=== PATIENT | female | born 1960 | race Caucasian/White ===

== ENCOUNTER → 2018-06-16 10:17 | Outpatient (CLI) | payer OTHER, SELFPAY ==
--- NOTE | 2018-06-16 10:27 | BI_ITS ---
MAMMOGRAPHY - BILATERAL SCREENING REASON FOR EXAM: Female, 57 years old. Routine annual screening examination. PERTINENT HISTORY: Aunt with breast cancer. TECHNIQUE: Digital bilateral breast beck (3D mammographic acquisition) in the CC and MLO projections. 2-D mediolateral oblique (MLO) and craniocaudad (CC) views of both breasts were obtained. An exaggerated craniocaudad view of the left breast was obtained as well. CAD: Full Field Digital Mammography with Computer Added Detection was performed. COMPARISON: Comparison is made with prior study dated October 13, 2009. FINDINGS: Breast Composition: There are scattered areas of fibroglandular density. There are no dominant masses or suspicious calcifications. No other significant abnormalities are identified. There has been no significant change since the prior study. BI/SCREENING MAMM (CAD), BILAT IMPRESSION: Stable bilateral screening mammogram. Yearly follow-up mammogram recommended. (A) ASSESSMENT CATEGORY: BIRADS Category 1: Negative. A letter regarding these results will be sent to the patient by the facility within 30 days. Approximately 10% of breast cancers are not detected by mammography. A normal mammogram should not delay biopsy of a clinically suspicious abnormality. [id number] Electronically Signed: Hector Hannon MD at 10:17 EDT Tel [phone], Service support ,
== END ==
DX: Z12.31 Encounter for screening mammogram for malignant neoplasm of breast (principal)
CPT/HCPCS: 77063; 77067

== ENCOUNTER 2018-06-26 09:18 | Emergency (ER) | payer SELFPAY ==
[2018-06-26 09:20] VITALS: BP 139/81; PULSE 71; RESP 18; TEMP 36.6; O2SAT 99; BMI 28.3
--- NOTE | 2018-06-26 09:33 | US_ITS ---
STUDY: ABDOMINAL ULTRASOUND - RIGHT UPPER QUADRANT REASON FOR VISIT: Female, 57 years old. Pain TECHNIQUE: Ultrasound evaluation of the right upper quadrant was performed with real-time and static kuhn-scale imaging. TECHNICAL QUALITY: Adequate. COMPARISON: August 21, 2014 report only FINDINGS: Liver: The liver measures 13.1 cm. There is increased echogenicity consistent with fatty infiltration. The bile ducts are within normal limits. There is hepatic color flow. The direction of portal flow is hepatopetal. There is no demonstrated mass lesion. Gallbladder: Normal distended gallbladder. The gallbladder wall measures 2.2 mm. There is a positive sonographic Giron's sign. There is no pericholecystic fluid. There are no gallstones. Common Bile Duct (C.B.D.): The common bile duct measures 3.1 mm. Pancreas: Normal size of the head, body and tail of the pancreas. There is normal echogenicity of the pancreas. There is no demonstrated pancreatic mass or cyst. Right Kidney: Normal size of the right kidney. The right kidney measures 9.7 cm. Normal renal cortex. The right cortex measures 1.1 cm. There is no demonstrated renal mass or cyst. There is no right hydronephrosis. US/Gallbladder IMPRESSION: There is again a positive sonographic Giron's sign. There is mild fatty infiltration of the liver. Electronically Signed: Alma Reed MD at 11:17 EDT , Service support ,
[2018-06-26 09:53] LABS: Absolute Lymphocyte Count 1.62 X10^3/ul (0.83-4.51); Absolute Neutrophil Count 2.1 X10^3/uL (2.0-7.7); Basophil# 0.05 X10^3/uL; Basophil% 1.1 % (0-1); Eosinophil# 0.12 X10^3/uL; Eosinophils% 2.7 % (0-5); Hematocrit 42.2 % (37-47); Hemoglobin 14.3 g/dl (12.0-15.0); Lymphocyte # 1.62 X10^3/ul (4.0); Lymphocyte % 36.6 % (19-41); Mean Corp Hgb Conc 33.9 g/gl (32-36); Mean Corpuscular Hgb 34.4 pg (27.0-32.0); Mean Corpuscular Volume 101.4 fL (81-99); Monocyte% 11.3 % (0-10); Neutrophil # 2.13 X10^3/uL (2.7-7.7); Neutrophil % 48.1 % (47-70); POSITIVE COUNT NO; POSITIVE DIFFERENTIAL NO; POSITIVE MORPHOLOGY NO; Platelet Count 242 K/mm3 (150-450); RBC Distribution Width SD 48.1 fl (35.1-43.9); Red Blood Count 4.16 M/mm3 (4.2-5.4); White Blood Count 4.4 K/mm3 (4.4-11.0)
[2018-06-26 10:04] LABS: ALB/GLOB Ratio 0.9 RATIO (0.9-2.4); AST(SGOT) 21 U/L (15-37); Alanine Aminotransfer ALT/SGPT 29 U/L (13-56); Albumin, Serum 3.7 g/dL (3.2-5.0); Alkaline Phosphatase 106 U/L (45-117); Anion Gap 6 (5-15); BUN 8 mg/dL (7-18); BUN/Creat Ratio 10.9 RATIO (10-20); Calcium,Total 8.9 mg/dL (8.5-10.1); Chloride 107 mmol/L (98-107); Creatinine, Serum 0.74 mg/dL (0.55-1.02); EST Glomerular Filtration Rate 87 mL/min (>60); Est Glom Filt Rate - Afr Amer 105 mL/min (>60); Estimated Creatinine Clearance 74.18 ml/min; Globulin 3.9 g/dL (2.2-4.2); Glucose 93 mg/dL (74-106); Lipase 130 U/L (73-393); Protein, Total 7.6 g/dL (6.4-8.2); Sodium Level 139 mmol/L (136-145)
[2018-06-26] MEDS: Ondansetron 4 MG/2 ML Vial IV (10:05)
[2018-06-26] MEDS: 0.9% Normal Saline 1,000 ML 1000 ML IV (10:05)
[2018-06-26] MEDS: Morphine 4 MG/ML Syringe IV (10:05)
[2018-06-26 10:12] VITALS: BP 115/82; PULSE 71; RESP 19; O2SAT 97
--- NOTE | 2018-06-26 11:33 | ED.DCSUM_ITS ---
- ER Visit Summary Date of Service: 06/26/18 Chief Complaint: Abdominal pain History of Present Illness: The patient is a 57 F with right upper quadrant abdominal pain. Symptoms have been going on for the last 4-5 days. It does not radiate. Worse after eating mayonnaise. Associated with nausea and vomiting. Patient has no history of gallbladder disease or liver disease. No urinary symptoms. No change in bowel movements. 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 No fever or rash. Physical Examination: Afebrile and vital signs unremarkable. Patient appears uncomfortable but not in distress. Heart regular. Lungs clear. Abdomen is tender in the right upper quadrant. No guarding or rebound. No distention. Skin appears normal. Test Results: CBC, CMP, lipase unremarkable. Ultrasound shows a positive sonographic Giron sign but is otherwise unremarkable. There is evidence of fatty liver. Emergency Department Course and Treatment: Patient received fluids, morphine, and Zofran while awaiting results. On reevaluation, she is resting comfortably. I do believe that she has some biliary colic or some hepatobiliary process going on. I do believe at this time she is appropriate for outpatient follow-up. She is not septic. She does not have intractable symptoms. There is nothing obvious on the workup here. There is nothing to suggest cardiac, respiratory, vascular, , or RULING MACHINE SET UP OPERATOR pathology. No further emergent workup was indicated. Patient will be discharged with a course of Motrin and Zofran. Follow-up with primary care. Return for new or worsening symptoms or if unable to follow-up. Treatment Plan: As above Disposition: Discharged Impression: 1. Right upper quadrant abdominal pain This note was generated with [employer] dictation software. It may contain incorrect words, spelling, and punctuation that were not noted in review of the chart prior to signing ED Disposition - Plan for ED Patient: Chief Complaint: Abd Pain Referrals: Candi Callahan,Kesha Downing [Primary Care Provider] -
--- NOTE | 2018-06-26 11:33 | ED.DEP ---
ED Disposition - Plan for ED Patient: Chief Complaint: Abd Pain Instructions: Abdominal Pain Prescriptions: Ondansetron [Zofran Odt] 4 mg PO Q8H PRN PRN #10 tab PRN Reason: Nausea Ibuprofen [Motrin] 800 mg PO TID PRN PRN #20 tab PRN Reason: Pain Referrals: Candi Callahan,Kesha Downing [Primary Care Provider] -
[2018-06-26 12:58] VITALS: BP 103/70; PULSE 70; RESP 29; O2SAT 95
== END 2018-06-26 13:00 | disposition home or self-care (01) ==
PROVIDERS: Emergency Provider Emergency Medicine
DX: R10.11 Right upper quadrant pain (principal); R11.2 Nausea with vomiting, unspecified; E03.9 Hypothyroidism, unspecified; M19.90 Unspecified osteoarthritis, unspecified site; Z72.0 Tobacco use; Z79.899 Other long term (current) drug therapy
CPT/HCPCS: 76705; 80053; 83690; 85025; 96361; 96374; 96375; 99283; J7030; A4216; J2405

== ENCOUNTER 2018-07-04 13:55 | Outpatient (RCR) | payer SELFPAY ==
--- NOTE | 2018-07-04 14:53 | HP.PTEVAL_ITS ---
Patient's Visit Information DEB SANDOVAL is a 57 year old F referred to Physical Therapy by Gene Martinez with a diagnosis of BPPV. Date of Evaluation: 07/04/18 Physical Therapist: Antonio Whiteside DPT, [place] - Visit Plan Frequency: 1-2x /Week Duration: 2-4 Weeks Plan: Treated with Semont, Aileen and taught BD today. 1-2x/week as needed for 1 -4 weeks for positional treatments and progressions. - Subjective Subjective: Had blood and urine tests without any thing noted. Feels spinning lightheaded and nauseous for a week or so. Insidious onset. Lying down makes her spin. Feels tight and stiff. 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 Sleep is not great becasue hard to lie comfortably. Basic aDLS are OK and is careful with walking but not dangerous. - Objective Walks into [place] feeling poorly but wtih good balance and I, trasnitions I. c/s AROM WFL. - R hallpike ellie. + L hallpike ellie for up torsional non fatiguing nystagmus. Treated wtih L semont posterior, then better hallpike, then L Aileen x 2 with continued up torsional nystagmus with less intenisty. Taugth BD ex. Walked out more stable then entering. - Goals Goal 1:: abolish dizzyness with lying and sleep without interruption Goal Time Frame: 2-4 Weeks Goal 2:: Return to work without feeling dizzy Goal Time Frame: 2-4 Weeks - Rehabilitation Potential Physical Therapy Diagnosis: L posterior cupulolithiasis Rehabilitation Potential: Fair - Anticipated Interventions Patient/Client Instruction: Educate patient on: Condition, Plan of Care For the Purpose of:: To increase tolerance to activity/condition/position, To improve ability of physical actions for home/community/work/leisure Comment: positional treatments adn exercises For the Purpose of:: To increase tolerance to activity/condition/position, To improve ability of physical actions for home/community/work/leisure Thank you for the opportunity to evaluate your patient. For Medicare and Medicare HMO plans, please review the plan of care and approve it. It will need to be FAXED BACK to us at [phone] for Medicare purposes. Please let me know if there are questions or concerns regarding this plan of care. Physician Signature: Date:
--- NOTE | 2018-10-16 12:53 | HP.PT.NRP ---
HP - Discharge Summary (1) - Patient Information DEB SANDOVAL was seen in my office for initial evaluation on 07/04/18. The following Plan of Care was established for this patient: Initial Frequency: 1-2x /Week Initial Duration: 2-4 Weeks - Anticipated Interventions Patient/Client Instruction: Educate patient on: Condition, Plan of Care For the Purpose of:: To increase tolerance to activity/condition/position, To improve ability of physical actions for home/community/work/leisure For the Purpose of:: To increase tolerance to activity/condition/position, To improve ability of physical actions for home/community/work/leisure This patient was last seen in our office 07/04/18. Pertinent comments regarding their Physical therapy will appear below: Pt seen for one visit for positional instructions. She cancelled the rest of her plan of care stating she would just do ex at home. I will disocontinue her at her request. At this point I will be discontinuing this patient from physical therapy. I would be happy to see this patient again in the future if found appropriate by the physician. Thank you! Antonio Whiteside, DPT, [place]
== END 2018-07-04 19:00 | disposition home or self-care (01) ==
LOC: PT 13:55
PROVIDERS: Visit Provider Chiropractor
DX: H81.13 Benign paroxysmal vertigo, bilateral (principal)
CPT/HCPCS: 97161; 97530

== ENCOUNTER → 2020-04-23 07:58 | Outpatient (CLI) | payer SELFPAY ==
--- NOTE | 2020-04-23 08:02 | US_ITS ---
STUDY: THYROID ULTRASOUND REASON FOR EXAM: Female, 59 years old. NON TOXIC GOITER TECHNIQUE: Ultrasound evaluation of the thyroid was performed with real-time and static kuhn-scale imaging. COMPARISON: None. FINDINGS: RIGHT LOBE: The right lobe of the thyroid gland measures 4.1 cm x 1.5 cm x 1.6 cm. There is a homogeneous echotexture. There are no demonstrated solid, cystic or complex lesions. LEFT LOBE: The left lobe of the thyroid gland measures 4.6 cm x 1.2 cm x 1.5 cm. There is a homogeneous echotexture. There are no demonstrated solid, cystic or complex lesions. ISTHMUS: The isthmus measures 2.0 mm. The regional lymph nodes are normal. US/Thyroid IMPRESSION: Normal ultrasound examination of the thyroid. Electronically Signed: Hector Hannon, at 9:53 EDT , Service support ,
== END ==
PROVIDERS: Visit Provider Nurse Practitioner Family
DX: E04.9 Nontoxic goiter, unspecified (principal)
CPT/HCPCS: 76536

== ENCOUNTER → 2021-03-02 17:20 | Outpatient (CLI) | payer OTHER, SELFPAY ==
--- NOTE | 2021-03-02 16:54 | BI_ITS ---
MAMMOGRAPHY - BILATERAL SCREENING REASON FOR EXAM: Female, 60 years old. Routine annual screening examination. PERTINENT HISTORY: Aunt with breast cancer. TECHNIQUE: Digital bilateral breast oleg (3D mammographic acquisition) in the CC and MLO projections. 2-D mediolateral oblique (MLO) and craniocaudad (CC) views of both breasts were obtained. CAD: Full Field Digital Mammography with Computer Added Detection was performed. COMPARISON: Comparison is made with prior examination dated 06/16/2018. FINDINGS: Breast Composition: There are scattered areas of fibroglandular density. There are no dominant masses or suspicious calcifications. No other significant abnormalities are identified. There has been no significant change since the prior study. BI/SCRN MAMM (CAD)W/OLEG BILAT IMPRESSION: Stable bilateral screening mammogram. Yearly follow-up mammogram recommended. (A) ASSESSMENT CATEGORY: BIRADS Category 1: Negative. A letter regarding these results will be sent to the patient by the facility within 30 days. Approximately 10% of breast cancers are not detected by mammography. A normal mammogram should not delay biopsy of a clinically suspicious abnormality. [id number] Electronically Signed: Hector Hannon MD at 8:40 EDT , Service support ,
== END ==
DX: Z12.31 Encounter for screening mammogram for malignant neoplasm of breast (principal)
CPT/HCPCS: 77063; 77067

== ENCOUNTER 2023-01-14 20:05 | Observation (INO) | payer BC, SELFPAY ==
[2023-01-14 20:05] VITALS: BP 97/64; PULSE 101; RESP 15; TEMP 37.2; O2SAT 92
--- NOTE | 2023-01-14 20:23 | CT_ITS ---
STUDY: CT ABDOMEN AND PELVIS WITH CONTRAST REASON FOR EXAM: Female, 62 years old. RUQ pain RADIATION DOSAGE (If Supplied By Facility): CTDIvol = ( 20.07 ) mGy, DLP = ( 1257.07 ) mGycm TECHNIQUE: Transaxial images were obtained from the dome of the diaphragm to the symphysis pubis without oral contrast. IV 100mL Isovue-300 was administered. Sagittal and coronal images were reconstructed. Individualized dose optimization techniques were used for this CT. COMPARISON: CT abdomen and pelvis May 18, 2013 FINDINGS: The visualized lung bases are unremarkable. The visualized portions of the heart are within normal limits. Normal liver. Gallbladder not identified. Normal spleen. Normal pancreas. 14 mm right adrenal nodule unchanged consistent with adenoma. Left adrenal normal. Normal right kidney. Normal left kidney. Normal visualized stomach. Normal small intestine. Normal colon. The appendix is visualized and appears normal. Normal abdominal aorta. Normal inferior vena cava. Normal retroperitoneum. Normal urinary bladder. Uterus normal. Bilateral tubal ligation clips. Normal abdominal wall. Stable . No acute disease CT/Abdomen/Pelvis W IV Cont ONLY IMPRESSION: No acute disease Electronically Signed: Aman Sargent MD at 22:20 EST Reading Location ID and State: [facility] / [place] , Service support ,
[2023-01-14 20:24] VITALS: BMI 33.3
--- NOTE | 2023-01-14 20:26 | EX.ED.DYSGE1 ---
HPI History of Present Illness Chief Complaint: Abd Pain Informant: patient Onset/Context/Timing Onset: Yesterday Context: Gradual Onset Current Severity: Moderate Maximum Severity: Moderate Narrative Narrative: TherePatient presents with body aches along with nausea and diarrhea. She also has pain in the right upper quadrant. She states over the past month she had 3 separate episodes symptoms. This particular episode started yesterday. She has been seen by her primary care nurse practitioner and had work-up including stool studies and blood work. No acute findings were noted. She has been referred to a GI doctor. [facility] Medical History Arthritis Hypothyroid Home Medications acetaminophen 500 mg tablet 500 - 1,000 mg PO Q6H PRN PRN Pain 08/21/14 [History Last Taken Unknown] ibuprofen 800 mg tablet 800 mg PO TID PRN PRN Pain #20 tabs 06/26/18 [Rx Last Taken Unknown] levothyroxine 25 mcg tablet (Levoxyl) 25 mcg PO DAILY 06/26/18 [History Last Taken Unknown] meloxicam 7.5 mg tablet 7.5 mg PO DAILY 06/26/18 [History Last Taken Unknown] ondansetron 4 mg disintegrating tablet 4 mg PO Q8H PRN PRN Nausea #10 tabs 06/26/18 [Rx Last Taken Unknown] Allergy/AdvReac Type Severity Reaction Status Date / Time codeine AdvReac Other Verified 01/14/23 20:25 Surgical History Hx of cholecystectomy Social History Smoking Status: Current every day smoker tobacco type: cigarettes ROS ROS ED Constitutional Constitutional ED: Reports fever(s) and other Details: Borderline fever ; Denies chills Eyes Eyes: Denies change in vision or discharge from eye(s) ENT ENT ED: Denies discharge from eye(s), rhinorrhea or sore throat Cardiovascular Cardiovascular: Denies chest pain or palpitations Respiratory/Chest Respiratory/Chest: Denies dyspnea Gastrointestinal Gastrointestinal: Reports abdominal pain, diarrhea and nausea; Denies vomiting Genitourinary Genitourinary ED: Denies difficulty urinating or dysuria Musculoskeletal Musculoskeletal: Reports myalgias; Denies back pain or extremity pain Integumentary Denies Abrasions or rash Neurologic Neurologic: Reports weakness; Denies headache(s) Psychiatric Psychiatric: Denies anxiety or depression Allergic/Immunologic Allergic/Immunologic ED: Denies lip swelling or urticaria EXAM Physical Exam Const Vital Signs: 01/14/23 20:05 01/14/23 20:45 01/14/23 23:17 Temperature 99.0 F Temperature Source Temporal Pulse Rate 101 H 91 Respiratory Rate 15 19 H Blood Pressure 97/64 115/78 Blood Pressure Mean 75 90 Pulse Ox 92 94 100 Oxygen Delivery Method Room Air Nasal Cannula Nasal Cannula Oxygen Flow Rate (L/min) 2 2 Positive well nourished and well developed General Appearance ED: well developed HEENT Reports normocephalic and head/scalp atraumatic Eyes PERRL and EOMs intact bilaterally Neck supple Chest Wall inspection of chest normal and palpation of chest normal Resp normal respiratory effort and clear to auscultation bilaterally Cardio regular rate and regular rhythm GI GI Narrative: Mild right upper quadrant tenderness. No guarding or rebound. Palpation: soft Extremity normal to inspection Neuro oriented x3 Neuro Narrative: Generalized weakness with no focal deficits. Sensorium / Orientation: alert Psych mental status grossly normal Skin no rashes or lesions noted MDM MDM MDM Narrative Medical decision making narrative: Patient was given morphine and Zofran for pain and nausea along with IV fluids. states that she tends to run a low blood pressure at baseline. CBC and chemistry studies are obtained to evaluate for leukocytosis, anemia, electrolyte derangement. Lactic acid obtained given her borderline low blood pressure on arrival. LFTs and lipase obtained. CT scan of the abdomen and pelvis with IV contrast ordered secondary to upper abdominal pain, recurrent with vomiting and diarrhea. Lab Data Attestation: I reviewed the patient's lab results. Labs: Laboratory Results - last 24 hr 01/14/23 01/14/23 01/14/23 20:34 20:34 20:35 WBC 5.2 RBC 3.97 L Hgb 13.5 Hct 41.2 MCV 103.8 H MCH 34.0 H MCHC 32.8 RDW Std Deviation 50.5 H RDW Coeff of Matt 13.2 Plt Count 252 MPV 10.8 Immature Gran % (Auto) 0.200 Neut % (Auto) 84.7 H Lymph % (Auto) 5.4 L Castro % (Auto) 8.3 Eos % (Auto) 1.0 Baso % (Auto) 0.4 Absolute Neuts (auto) 4.4 Absolute Lymphs (auto) 0.28 L Nucleated RBC % 0 Differential Comment SEE COMMENT Toxic Granulation RARE Platelet Estimate ADEQUATE RBC Morphology N CHROM Anisocytosis 1+ Macrocytosis 1+ Sodium 137 Potassium 3.7 Chloride 104 Carbon Dioxide 28.0 Anion Gap 5 BUN 9 Creatinine 0.85 Estim Creat Clear Calc 60.78 Est GFR (MDRD) Af Amer 87 Est GFR (MDRD) Non-Af 72 BUN/Creatinine Ratio 10.6 Glucose 134 H Lactic Acid 1.6 Calcium 8.5 Total Bilirubin 0.30 Direct Bilirubin 0.08 AST 33 ALT 30 Alkaline Phosphatase 110 Total Protein 7.5 Albumin 3.6 Globulin 3.9 Lipase 544 H Radiography Diagnostic Testing: Clinical Impression(s) from Imaging Studies Abdomen/Pelvis CT 01/14/23 20:23 IMPRESSION: No acute disease Electronically Signed: Aman Sargent MD at 22:20 EST , Treatment and Re-Evaluation Narrative: CBC was normal white count and hemoglobin. Slight left shift noted with 84% neutrophils. Chemistry studies unremarkable. Lactic acid is normal at 1.6. LFTs are normal but lipase is slightly elevated at 544. This is not double upper limit of normal that would be consistent with acute pancreatitis. CT scan of the abdomen pelvis reveals no acute disease. I was notified by CT staff before they took her for imaging that she was vomiting in spite of the Zofran. She was given an IM injection of Phenergan. On repeat evaluation she is sitting upright in the bed, resting comfortably with intermittent snoring with sleep. She is on 2 L nasal cannula at this time. When asked nursing staff they stated that she dropped her O2 sat to 88% shortly after she arrived and was started on oxygen. I turned the patient's oxygen off and she did drop back to 87-88%. She is placed back on 2 L. at bedside states the patient does snore quite a bit at home. I am suspicious that she has sleep apnea, however this is never been diagnosed. She is also been a long-term smoker but never diagnosed with COPD. Given the fact the patient continues to have nausea with current hypoxia, I will speak with hospitalist regarding observation overnight. My hope is that with her nausea under control she can be more alert and we can wean her off of oxygen rather quickly. I did advise her that she will need pulmonary function testing and sleep studies as an outpatient. Discharge Plan Triage Chief Complaint: Abd Pain ED Provider: Marifer Rowe Dx/Rx/DC Orders Clinical Impression: Vomiting, Elevated lipase, Hypoxia Prescriptions: No Action acetaminophen 500 MG tablet 500 - 1,000 mg PO Q6H PRN PRN (Reason: Pain) levothyroxine [Levoxyl] 25 MCG tablet 25 mcg PO DAILY meloxicam 7.5 MG tablet 7.5 mg PO DAILY ibuprofen 800 MG tablet 800 mg PO TID PRN PRN (Reason: Pain) Qty: 20 0RF ondansetron 4 MG tablet 4 mg PO Q8H PRN PRN (Reason: Nausea) Qty: 10 0RF Primary Care Provider: Chelly Escoto NP Referrals: Chelly Escoto NP, BUILDING CUSTODIAL SUPERVISOR-[employer] [Primary Care Provider] - Disposition Disposition: Acute Care [facility]
[2023-01-14] MEDS: 0.9% Normal Saline 1,000 ML 1000 ML IV (20:37)
[2023-01-14] MEDS: Morphine 4 MG/ML Syringe IV (20:37)
[2023-01-14] MEDS: Ondansetron 4 MG/2 ML Vial IV (20:37)
[2023-01-14 20:45] VITALS: O2SAT 94
[2023-01-14 21:00] LABS: Absolute Lymphocyte Count 0.28 X10^3/uL (0.83-4.51); Absolute Neutrophil Count 4.4 X10^3/uL (2.0-7.7); Basophil# 0.02 X10^3/uL; Basophil% 0.4 % (0-1); Eosinophil# 0.05 X10^3/uL; Hematocrit 41.2 % (37-47); Hemoglobin 13.5 g/dL (12.0-15.0); Lymphocyte # 0.28 X10^3/ul (0.83-4.51); Lymphocyte % 5.4 % (19-41); Mean Corp Hgb Conc 32.8 g/dL (32-36); Mean Corpuscular Volume 103.8 fL (81-99); Mean Platelet Vol. 10.8 fl (6.2-12.0); Monocyte# 0.43 X10^3/uL; Monocyte% 8.3 % (0-10); NRBC Flagged by Analyzer 0 % (0-5); Neutrophil # 4.36 X10^3/uL (2.7-7.7); Neutrophil % 84.7 % (47-70); POSITIVE DIFFERENTIAL YES; Platelet Count 252 K/mm3 (150-450); RBC Distribution Width CV 13.2 % (11.6-14.6); RBC Distribution Width SD 50.5 fl (35.1-43.9); Red Blood Count 3.97 M/mm3 (4.2-5.4); White Blood Count 5.2 K/mm3 (4.4-11.0)
[2023-01-14 21:13] LABS: Lactic Acid 1.6 mmol/L (0.4-1.9)
[2023-01-14 21:19] LABS: AST(SGOT) 33 U/L (15-37); Alanine Aminotransfer ALT/SGPT 30 U/L (13-56); Albumin, Serum 3.6 g/dL (3.2-5.0); Alkaline Phosphatase 110 U/L (45-117); Anion Gap 5 (5-15); BUN 9 mg/dL (7-18); BUN/Creat Ratio 10.6 RATIO (10-20); Bilirubin, Direct 0.08 mg/dL (0.00-0.30); Calcium,Total 8.5 mg/dL (8.5-10.1); Chloride 104 mmol/L (98-107); Creatinine, Serum 0.85 mg/dL (0.55-1.02); EST Glomerular Filtration Rate 72 mL/min (>60); Est Glom Filt Rate - Afr Amer 87 mL/min (>60); Estimated Creatinine Clearance 60.78 ml/min; Globulin 3.9 g/dL (2.2-4.2); Glucose 134 mg/dL (74-106); Lipase 544 U/L (73-393); Potassium 3.7 mmol/L (3.5-5.1); Protein, Total 7.5 g/dL (6.4-8.2); Sodium Level 137 mmol/L (136-145)
[2023-01-14 21:33] LABS: Differential Indicated SCAN CRITERIA MET
[2023-01-14 21:35] LABS: Anisocytosis 1+; Macrocytosis 1+; Platelet Estimate ADEQUATE (ADEQ); Red Cell Morphology N CHROM NORMAL (NORM C&C); Toxic Granulation RARE
[2023-01-14] MEDS: proMETHazine 25 MG/ML Syringe 12.5 MG IM (21:42)
[2023-01-14 23:17] VITALS: BP 115/78; PULSE 91; RESP 19; O2SAT 100
--- NOTE | 2023-01-14 23:38 | HP.PCM_ITS ---
HPI - General General Date of Admission: 01/14/23 Date of Service: 01/14/23 Chief Complaint: Abdominal pain, nausea, emesis, diarrhea. HPI Narrative The patient is a 62 y/o F w/ PMHx: Obesity, Hypothyroidism, OA, Tobacco use, Suspected LATHA per discussion with patient (air gasping, snoring, daytime sleepiness but no formal testing) who presents to the [facility] ED on 01/14/23 with history of 3 separate episodes of nausea with occasional emesis, abdominal pain mores so in the RUQ described as cramping waxing and waning as well as loose stools (ranging 1-4 daily when occurring, described as watery) with PCP evaluation with unremarkable stools studies and labs with planned evaluation per GI already arranged with recurrent episodes starting the day prior to current presentation prompting repeat ED evaluation. Work-up in the ED included T99, heart rate 101, BP initially 97/64 with most recent repeat 115/78, oxygenation 92% on room air while sleeping and post-narcotic therapy decreased, improved to 100% on 2 L nasal cannula, CBC with WC 5.2, hemoglobin 13.5, platelet 252 with lymphopenia, CMP with glucose 134 otherwise not marked appearing, lipase very mildly elevated 544, lactic acid 1.6, blood culture x2 pending per ED, rapid SARS COVID and influenza antigen negative, CT abdomen and pelvis with no acute intra-abdominal process noted. In the ED patient ministered normal saline bolus 2 L, Zofran 4 mg IV x1 followed by promethazine 12.5 mg IM x1 morphine 4 mg IV x1. [facility] Medical History Arthritis Hypothyroid Obesity Suspected sleep apnea Tobacco use Home Medications acetaminophen 500 mg tablet 500 - 1,000 mg PO Q6H PRN PRN Pain 08/21/14 [History Last Taken Unknown] ibuprofen 800 mg tablet 800 mg PO TID PRN PRN Pain #20 tabs 06/26/18 [Rx Last Taken Unknown] levothyroxine 25 mcg tablet (Levoxyl) 25 mcg PO DAILY 06/26/18 [History Last Taken Unknown] meloxicam 7.5 mg tablet 7.5 mg PO DAILY 06/26/18 [History Last Taken Unknown] ondansetron 4 mg disintegrating tablet 4 mg PO Q8H PRN PRN Nausea #10 tabs 06/26/18 [Rx Last Taken Unknown] Allergy/AdvReac Type Severity Reaction Status Date / Time codeine AdvReac Other Verified 01/14/23 20:25 Family History (Updated 01/15/23 @ 00:[address] Romelia Britton MD) Father COPD (chronic obstructive pulmonary disease) Mother Kidney disease Surgical History (Updated 01/15/23 @ 00:[address] Romelia Britton MD) H/O tubal ligation Hx of cholecystectomy Social History (Updated 01/15/23 @ 00:[address] Romelia Britton MD) household members: spouse Smoking Status: Current every day smoker tobacco type: cigarettes Smoking packs per day: 1 Smoking cigarettes per day: 20.0 Years smoked: 44 Smoking pack-years: 44.00 alcohol intake: never substance use type: does not use ROS ROS Narrative Admission Review of Systems: CONSTITUTIONAL: No weight loss, fever, chills, + weakness or fatigue. HEENT: Eyes: No visual loss, blurred vision, double vision or yellow sclerae. Ears, Nose, Throat: No hearing loss, sneezing, congestion, runny nose or sore throat. SKIN: No rash or itching, lesions, wounds. CARDIOVASCULAR: No chest pain, chest pressure or chest discomfort, palpitations, edema, orthopnea, syncopal events. RESPIRATORY: + Reports chronic overnight loud snoring, possibly gasping for air with suspected LATHA. No shortness of breath, cough or sputum, wheezing, hemoptysis. GASTROINTESTINAL: + anorexia, nausea, vomiting, diarrhea, abdominal pain, No melena, BRBPR. GENITOURINARY: No dysuria, frequency, urgency or retention. NEUROLOGICAL: No headache, dizziness, syncope, paralysis, ataxia, numbness or tingling in the extremities, focal weakness, change in bowel or bladder control, seizure. MUSCULOSKELETAL: + muscle, back pain, joint pain or stiffness. HEMATOLOGIC: No anemia, bleeding or bruising. LYMPHATICS: No enlarged nodes. No history of splenectomy. PSYCHIATRIC: No history of depression or anxiety. ENDOCRINOLOGIC: No reports of sweating, cold or heat intolerance. No polyuria or polydipsia. ALLERGIES: No history of asthma, hives, eczema or rhinitis. Vital Signs Vital Signs Vital Signs: 01/14/23 20:05 01/14/23 20:45 01/14/23 23:17 Temperature 99.0 F Temperature Source Temporal Pulse Rate 101 H 91 Respiratory Rate 15 19 H Blood Pressure 97/64 115/78 Blood Pressure Mean 75 90 Pulse Ox 92 94 100 Oxygen Delivery Method Room Air Nasal Cannula Nasal Cannula Oxygen Flow Rate (L/min) 2 2 Weight Weight: 194 lb 4.8 oz Body Mass Index (BMI) 33.3 Physical Exam Narrative Physical Examination: General: Awakens to stimuli but very fatigued likely secondary to recent medications and acute presentation, when awoken will be alert for time, oriented to self, place and recent events but extremely fatigued and cooperative, seated upright in ED bed in no apparent distress. Skin: Normal color, normal turgor, no icterus, no cyanosis. HEENT: AT/NC, EOMI, PERRLA, moderately dry MM, no carotid bruits or JVD noted. Lungs: Mild diminished, greater bases, proper effort, no rales, ronchi or wheezing. Heart: Regular rate and rhythm; no gallop, rub audible. Abdomen: Soft, NTTP upon palpation including in the right upper quadrant, no obvious distention, mildly hyperactive bowel sounds, no obvious HSM. Extremities: No cyanosis, clubbing, or edema. Neurological: Awakens to stimuli but very fatigued likely secondary to recent medications and acute presentation, when awoken will be alert for time, oriented to self, place and recent events but extremely fatigued and cooperative, cognitive function mildly decreased from baseline given recent sedate of medica tions, pupils equally reactive to light and accommodation, cranial nerves grossly normal, moving all 4 extremities, no focal deficits, strength moderately global decrease secondary to acute presentation and recent medications that are sedate of. Psychiatric: Affect appears extremely flat and fatigued, no acute evidence of depressive or anxiety feelings. Results Lab / Micro Data Result Diagrams: 01/14/23 20:34 01/14/23 20:34 Labs: Laboratory Results - last 24 hr 01/14/23 20:34: WBC 5.2, RBC 3.97 L, Hgb 13.5, Hct 41.2, MCV 103.8 H, MCH 34.0 H , MCHC 32.8, RDW Std Deviation 50.5 H, RDW Coeff of Matt 13.2, Plt Count 252, MPV 10.8, Immature Gran % (Auto) 0.200, Neut % (Auto) 84.7 H, Lymph % (Auto) 5.4 L, Sunflower % (Auto) 8.3, Eos % (Auto) 1.0, Baso % (Auto) 0.4, Absolute Neuts (auto) 4.4, Absolute Lymphs (auto) 0.28 L, Nucleated RBC % 0, Differential Comment SEE COMMENT, Toxic Granulation RARE, Platelet Estimate ADEQUATE, RBC Morphology N CHROM, Anisocytosis 1+, Macrocytosis 1+ 01/14/23 20:34: Sodium 137, Potassium 3.7, Chloride 104, Carbon Dioxide 28.0, Anion Gap 5, BUN 9, Creatinine 0.85, Estim Creat Clear Calc 60.78, Est GFR (MDRD) Af Amer 87, Est GFR (MDRD) Non-Af 72, BUN/Creatinine Ratio 10.6, Glucose 134 H, Calcium 8.5, Total Bilirubin 0.30, Direct Bilirubin 0.08, AST 33, ALT 30, Alkaline Phosphatase 110, Total Protein 7.5, Albumin 3.6, Globulin 3.9, Lipase 544 H 01/14/23 20:35: Lactic Acid 1.6 Micro: Microbiology 01/14/23 20:33 Nasal Secretion SARS-CoV-2 & FLU Antigen (Rapid) - Final Radiology Impression Abdomen/Pelvis CT 01/14/23 20:23 IMPRESSION: No acute disease Electronically Signed: Aman Sargent MD at 22:20 EST Reading Location ID and State: [address] [place] [address] , Service support , Assessment & Plan Assessment/Plan (1) Vomiting: PLAN: Plan The patient is a 62 y/o F w/ PMHx: Obesity, Hypothyroidism, OA, Tobacco use, Suspected LATHA per discussion with patient who presents to the [facility] ED on 01/14/23 with history of 3 separate episodes of nausea with occasional emesis, abdominal pain mores so in the RUQ described as cramping waxing and waning as well as loose stools with PCP evaluation with unremarkable stools studies and labs with planned evaluation per GI already arranged with recurrent episodes starting the day prior to current presentation prompting repeat ED evaluation. #1. 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 #2. Hyperglycemia, mild: Admission glucose 134, will obtain hemoglobin A1c to be cautious, suspect likely reactive. #3. Suspected LATHA w/ ED noted Hypoxia, worsened following narcotic therapy: Per discussion with patient daytime sleepiness, loud snoring and potential gasping f or air with patient reporting that she believes she likely has sleep apnea but has not had formal testing, will have trending pulse oximeter and recommend for outpatient follow-up evaluation. #4. Hypothyroidism: We will continue patient on levothyroxine regimen. #5. Tobacco Abuse: Encouraged cessation, inpatient consultation per RT, NR if desired. #6. Obesity: Weight loss and lifestyle changes encouraged. #7. Incidental right adrenal nodule: Patient with CT scan noting a 14 mm right adrenal nodule which has been unchanged from prior imaging is consistent with adenoma, encourage continued outpatient monitoring. #8. DVT prophylaxis: Lower risk, encourage ambulation. Admission Evaluation Time spent evaluating chart, patient history, patient evaluation, care planning and discussion with specialists: 60 minutes. Charges/Coding Visit Charges Inpatient E&M: 06245 Init Hosp L2
[2023-01-15] VITALS (10 sets, daily range): BP systolic 100–111; BP diastolic 62–83; PULSE 73–90; RESP 16–20; TEMP 36.4–37.5; O2SAT 90–97; BMI 32.4
[2023-01-15 00:14] LABS: Magnesium 1.9 mg/dL (1.6-2.6); Phosphorus 2.7 mg/dL (2.5-4.9)
[2023-01-15] MEDS: Dicyclomine 10 MG Capsule PO ×4 (01:05→20:40)
[2023-01-15] MEDS: 0.9% Normal Saline 1,000 ML 125 ML IV ×4 (01:05→23:21)
[2023-01-15] MEDS: 0.9% Saline Lock 10 ML Syringe IV (01:05)
[2023-01-15] MEDS: Loperamide 2 MG Capsule PO (03:58)
[2023-01-15] MEDS: Levothyroxine 25 MCG TABLET PO (05:38)
[2023-01-15 05:59] LABS: Absolute Lymphocyte Count 0.46 X10^3/uL (0.83-4.51); Absolute Neutrophil Count 3.7 X10^3/uL (2.0-7.7); Basophil# 0.01 X10^3/uL; Basophil% 0.2 % (0-1); Eosinophil# 0.01 X10^3/uL; Eosinophils% 0.2 % (0-5); Hemoglobin 11.9 g/dL (12.0-15.0); Lymphocyte # 0.46 X10^3/ul (0.83-4.51); Lymphocyte % 9.7 % (19-41); Mean Corp Hgb Conc 32.2 g/dL (32-36); Mean Corpuscular Hgb 33.5 pg (27.0-32.0); Mean Corpuscular Volume 104.2 fL (81-99); Mean Platelet Vol. 10.7 fl (6.2-12.0); Monocyte% 10.6 % (0-10); NRBC Flagged by Analyzer 0 % (0-5); Neutrophil # 3.72 X10^3/uL (2.7-7.7); Neutrophil % 78.9 % (47-70); POSITIVE DIFFERENTIAL YES; Platelet Count 217 K/mm3 (150-450); RBC Distribution Width CV 13.3 % (11.6-14.6); RBC Distribution Width SD 51.1 fl (35.1-43.9); Red Blood Count 3.55 M/mm3 (4.2-5.4); White Blood Count 4.7 K/mm3 (4.4-11.0)
[2023-01-15 06:02] LABS: Differential Indicated SCAN CRITERIA MET
[2023-01-15 06:22] LABS: Differential Comment SCANNED
[2023-01-15 06:31] LABS: ALB/GLOB Ratio 0.9 RATIO (0.9-2.4); AST(SGOT) 45 U/L (15-37); Alanine Aminotransfer ALT/SGPT 39 U/L (13-56); Albumin, Serum 3.1 g/dL (3.2-5.0); Alkaline Phosphatase 100 U/L (45-117); Anion Gap 4 (5-15); BUN 7 mg/dL (7-18); BUN/Creat Ratio 9.9 RATIO (10-20); Calcium,Total 8.1 mg/dL (8.5-10.1); Chloride 107 mmol/L (98-107); Creatinine, Serum 0.71 mg/dL (0.55-1.02); EST Glomerular Filtration Rate 89 mL/min (>60); Est Glom Filt Rate - Afr Amer 108 mL/min (>60); Estimated Creatinine Clearance 72.76 ml/min; Globulin 3.4 g/dL (2.2-4.2); Glucose 115 mg/dL (74-106); Lipase 278 U/L (73-393); Potassium 3.5 mmol/L (3.5-5.1); Protein, Total 6.5 g/dL (6.4-8.2); Sodium Level 139 mmol/L (136-145)
[2023-01-15] MEDS: Ondansetron 4 MG/2 ML Vial IV (07:03)
[2023-01-15 07:19] LABS: Hemoglobin A1c 5.8 % (3.8-5.6)
--- NOTE | 2023-01-15 15:00 | PN_ITS ---
Subjective Subjective Patient seen and examined. She still complains of diarrhea. He said he had several episodes of diarrhea today. She also mentions that she has long periods of constipation which alternates with diarrhea. The symptoms have been going on for about 3 weeks. She denies any nausea or vomiting and review of systems o therwise negative. She has remained hemodynamically stable. Objective Data Objective Data Vital Signs: Vital Signs Temp Pulse Resp BP Pulse Ox O2 Del Method O2 Flow Rate 99.5 F H 86 16 111/68 93 Nasal Cannula 2 01/15/23 13:43 01/15/23 13:43 01/15/23 13:43 01/15/23 13:43 01/15/23 14:46 01/15/23 14:46 01/15/23 14:46 Oxygen Flow Rate (L/min) 2 Oxygen Delivery Method Nasal Cannula Weight: 189 lb 2.506 oz Body Mass Index (BMI) 32.4 Intake & Output: Intake and Output for Last 24 Hours 01/13/23 01/14/23 01/15/23 23:59 23:59 23:59 Intake Total 1000 / 1000 963.75 / 963.75 Balance 1000 / 1000 963.75 / 963.75 Lab / Micro Data Result Diagrams: 01/15/23 05:12 01/15/23 05:12 Labs: Laboratory Results - last 24 hr 01/14/23 20:34: WBC 5.2, RBC 3.97 L, Hgb 13.5, Hct 41.2, MCV 103.8 H, MCH 34.0 H , MCHC 32.8, RDW Std Deviation 50.5 H, RDW Coeff of Matt 13.2, Plt Count 252, MPV 10.8, Immature Gran % (Auto) 0.200, Neut % (Auto) 84.7 H, Lymph % (Auto) 5.4 L, [place] % (Auto) 8.3, Eos % (Auto) 1.0, Baso % (Auto) 0.4, Absolute Neuts (auto) 4.4, Absolute Lymphs (auto) 0.28 L, Nucleated RBC % 0, Differential Comment SEE COMMENT, Toxic Granulation RARE, Platelet Estimate ADEQUATE, RBC Morphology N CHROM, Anisocytosis 1+, Macrocytosis 1+ 01/14/23 20:34: Sodium 137, Potassium 3.7, Chloride 104, Carbon Dioxide 28.0, Anion Gap 5, BUN 9, Creatinine 0.85, Estim Creat Clear Calc 60.78, Est GFR (MDRD) Af Amer 87, Est GFR (MDRD) Non-Af 72, BUN/Creatinine Ratio 10.6, Glucose 134 H, Calcium 8.5, Total Bilirubin 0.30, Direct Bilirubin 0.08, AST 33, ALT 30, Alkaline Phosphatase 110, Total Protein 7.5, Albumin 3.6, Globulin 3.9, Lipase 544 H 01/14/23 20:34: Phosphorus 2.7, Magnesium 1.9 01/14/23 20:35: Lactic Acid 1.6 01/15/23 05:12: WBC 4.7, RBC 3.55 L, Hgb 11.9 L, Hct 37.0, MCV 104.2 H, MCH 33.5 H, MCHC 32.2, RDW Std Deviation 51.1 H, RDW Coeff of Matt 13.3, Plt Count 217, MPV 10.7, Immature Gran % (Auto) 0.400, Neut % (Auto) 78.9 H, Lymph % (Auto) 9.7 L, [place] % (Auto) 10.6 H, Eos % (Auto) 0.2, Baso % (Auto) 0.2, Absolute Neuts (auto) 3.7, Absolute Lymphs (auto) 0.46 L, Nucleated RBC % 0, Differential Comment SCANNED 01/15/23 05:12: Sodium 139, Potassium 3.5, Chloride 107, Carbon Dioxide 28.0, Anion Gap 4 L, BUN 7, Creatinine 0.71, Estim Creat Clear Calc 72.76, Est GFR (MDRD) Af Amer 108, Est GFR (MDRD) Non-Af 89, BUN/Creatinine Ratio 9.9 L, Glucose 115 H, Calcium 8.1 L, Total Bilirubin 0.20, AST 45 H, ALT 39, Alkaline Phosphatase 100, Total Protein 6.5, Albumin 3.1 L, Globulin 3.4, Albumin/Globulin Ratio 0.9, Lipase 278 01/15/23 05:12: Hemoglobin A1c 5.8 H Micro: Microbiology 01/14/23 20:33 Nasal Secretion SARS-CoV-2 & FLU Antigen (Rapid) - Final Radiography Diagnostic Testing: Radiology Impression Abdomen/Pelvis CT 01/14/23 20:23 IMPRESSION: No acute disease Electronically Signed: Aman Sargent MD at 22:20 EST , Physical Exam Const alert, oriented x3 and no apparent distress HEENT normocephalic, head/scalp atraumatic and moist oral mucous membranes Eyes PERRL and EOMs intact bilaterally Resp normal respiratory effort, normal air movement and clear to auscultation bilaterally Cardio regular rate, regular rhythm, S1 normal heart sound, S2 normal heart sound and no murmurs GI normal to inspection, nondistended, normoactive bowel sounds, soft to palpation, non-tender and non-distended Extremity normal capillary refill Neuro CN's II-XII intact bilaterally, no focal motor deficits and no sensory deficits noted Motor Exam: strength 5/5 throughout Psych thought process normal Assessment & Plan Assessment/Plan (1) Vomiting: (2) Diarrhea: PLAN: Plan #Diarrhea * States that has been going on for about 3 weeks and alternates with periods of constipation. She states she had stool studies done by her PCP on outpatient basis and was negative for any significant findings. * I do think his symptoms may be indicated of of irritable bowel syndrome. CT of the abdomen and pelvis showed no acute intra-abdominal pathology. * Will continue gentle hydration with IV fluids. She states she had 3 episodes of diarrhea this morning. * I do think it would be beneficial to get gastroenterology consult * IV Zofran as needed. * #Hypothyroidism: On Synthroid #Probable sleep apnea * Patient quite drowsy and was apparently hypoxic after she took narcotics. She also has daytime sleepiness, loud snoring as well and there is concern for sleep apnea. * To follow-up with pulmonology on outpatient basis for evaluation. * #Incidental right adrenal nodule colonoscopy CT scan. * She has a 14 mm right adrenal nodule which is unchanged from prior imaging consistent with adenoma. To follow-up with PCP for order of imaging for regular monitoring. * DVT prophylaxis: Lovenox Charges/Coding Visit Charges Inpatient E&M: 86642 Subs Hosp L2
[2023-01-15 20:55] LABS: Bacteria 0 SEEN /hpf (None Seen); Mucous, Urine 0 SEEN /hpf (<or=2+); White Blood Cells 0 SEEN /hpf (0-5)
[2023-01-15 21:00] LABS: Color, Urine Yellow (Yellow); Glucose, Dipstick Normal (Normal); Ketone-Dipstick 50 mg/dl (Negative); Leukocyte Esterase-Dipstick Negative /ul (Negative); Nitrite-Dipstick Negative (Negative); Occult Blood-Urine 150 /ul (Negative); Protein-Dipstick 15 mg/dl (Negative); Urine Bilirubin Dipstick Negative (Negative); Urine Clarity Sl. Cloudy (Clear); Urine Urobilinogen Normal (Normal)
[2023-01-15 21:07] LABS: Red Blood Cells-Urine 25-50 SEEN /hpf (0-5); Squamous Epithelial Cells - UA 5-10 SEEN /hpf (5-10)
[2023-01-16 02:41] VITALS: BP 97/64; PULSE 81; RESP 16; TEMP 36.7; O2SAT 93
[2023-01-16 02:45] VITALS: BP 97/64; PULSE 81; RESP 16; TEMP 36.7; O2SAT 93
[2023-01-16 05:44] LABS: Absolute Lymphocyte Count 1.02 X10^3/uL (0.83-4.51); Absolute Neutrophil Count 3.3 X10^3/uL (2.0-7.7); Basophil# 0.01 X10^3/uL; Basophil% 0.2 % (0-1); Hematocrit 35.2 % (37-47); Hemoglobin 11.3 g/dL (12.0-15.0); Lymphocyte # 1.02 X10^3/ul (0.83-4.51); Lymphocyte % 20.1 % (19-41); Mean Corp Hgb Conc 32.1 g/dL (32-36); Mean Corpuscular Hgb 33.3 pg (27.0-32.0); Mean Corpuscular Volume 103.8 fL (81-99); Mean Platelet Vol. 10.8 fl (6.2-12.0); Monocyte# 0.73 X10^3/uL; Monocyte% 14.4 % (0-10); NRBC Flagged by Analyzer 0 % (0-5); Neutrophil % 64.9 % (47-70); Platelet Count 189 K/mm3 (150-450); RBC Distribution Width CV 13.2 % (11.6-14.6); RBC Distribution Width SD 51.2 fl (35.1-43.9); Red Blood Count 3.39 M/mm3 (4.2-5.4); White Blood Count 5.1 K/mm3 (4.4-11.0)
[2023-01-16 06:00] VITALS: BMI 32.0
[2023-01-16] MEDS: 0.9% Normal Saline 1,000 ML 125 ML IV (06:04)
[2023-01-16] MEDS: Levothyroxine 25 MCG TABLET PO (06:04)
[2023-01-16] MEDS: Dicyclomine 10 MG Capsule PO (06:04)
[2023-01-16 06:29] LABS: Anion Gap 6 (5-15); BUN 7 mg/dL (7-18); Calcium,Total 8.3 mg/dL (8.5-10.1); Chloride 109 mmol/L (98-107); Creatinine, Serum 0.64 mg/dL (0.55-1.02); EST Glomerular Filtration Rate 101 mL/min (>60); Est Glom Filt Rate - Afr Amer 122 mL/min (>60); Estimated Creatinine Clearance 80.72 ml/min; Glucose 98 mg/dL (74-106); Potassium 3.2 mmol/L (3.5-5.1); Sodium Level 141 mmol/L (136-145)
[2023-01-16 07:15] VITALS: O2SAT 93
[2023-01-16 07:49] LABS: Magnesium 1.8 mg/dL (1.6-2.6); Phosphorus 2.3 mg/dL (2.5-4.9)
[2023-01-16 08:48] VITALS: BP 125/69; PULSE 68; RESP 18; TEMP 37.2; O2SAT 94
--- NOTE | 2023-01-16 12:37 | PCM.DC ---
Discharge Instructions Diet Discharge Diet: No restrictions Activity Discharge Activity: Return to Normal Activity Dressing / Incision Call your doctor if you observe: Fever of 101 or Higher, Shortness of breath, Dizziness, Fainting spells, Swelling in the ankles, Chest pain and Increased palpitations (irregular heartbeat) Follow Up Care Test Results: Test results from this visit will be discussed in further detail at your follow-up appointment, if applicable. Discharge Plan Admission Admit Date/Time: 01/14/23 23:44 Attending Provider: Bridger Malik Primary Care Provider: Chelly Escoto NP Consulting Providers: Romelia Britton ; Maegan La Discharge Orders/Prescriptions Prescriptions: Continued acetaminophen 500 MG tablet 500 - 1,000 mg PO Q6H PRN PRN (Reason: Pain) levothyroxine [Levoxyl] 25 MCG tablet 25 mcg PO DAILY omeprazole 40 mg capsule,delayed release(DR/EC) 40 mg PO DAILY Label Comments: TAKE 1 CAPSULE BY MOUTH EVERY DAY Referrals / Follow Up: Chelly Escoto SENIOR SOFTWARE DEVELOPMENT MANAGER, SENIOR SOFTWARE DEVELOPMENT MANAGER-C [Primary Care Provider] - Within 1 Week Disposition Disposition (needs filled in before D/C Order can be placed): Home, Self Care
--- NOTE | 2023-01-16 14:16 | PHA.DC.MR ---
Pharmacy Service has performed discharge medication reconciliation for this patient. The patient's discharge medication list was reviewed for discrepancies and discrepancies were resolved. Home Medications acetaminophen 500 mg tablet 500 - 1,000 mg PO Q6H PRN PRN Pain 08/21/14 levothyroxine 25 mcg tablet (Levoxyl) 25 mcg PO DAILY thyroid 06/26/18 omeprazole 40 mg capsule,delayed release 40 mg PO DAILY GERD 01/15/23
--- NOTE | 2023-01-16 15:26 | DS.PCM_ITS ---
Providers Date of Admission: 01/14/23 Primary Care Physician: Chelly Escoto, TRUCK BRACER-C Reason For Visit: ABD PAIN, DIARRHEA, NAUSEA Diagnosis Discharge Diagnosis (1) Vomiting: Status: Acute Code(s): R11.10 - Vomiting, unspecified (2) Diarrhea: Status: Acute Code(s): R19.7 - Diarrhea, unspecified Medications at Discharge Home Medications acetaminophen 500 mg tablet 500 - 1,000 mg PO Q6H PRN PRN Pain 08/21/14 levothyroxine 25 mcg tablet (Levoxyl) 25 mcg PO DAILY thyroid 06/26/18 omeprazole 40 mg capsule,delayed release 40 mg PO DAILY GERD 01/15/23 Hospital Course Operations None Procedures None Summary of Care Provided Minutes Spent on Discharge: 37 Hospital Course: Per HPI: The patient is a 62 y/o F w/ PMHx: Obesity, Hypothyroidism, OA, Tobacco use, Suspected LATHA per discussion with patient (air gasping, snoring, daytime sleepiness but no formal testing) who presents to the [facility] ED on 01/14/23 with history of 3 separate episodes of nausea with occasional emesis, abdominal pain mores so in the RUQ described as cramping waxing and waning as well as loose stools (ranging 1-4 daily when occurring, described as watery) with PCP evalua tion with unremarkable stools studies and labs with planned evaluation per GI already arranged with recurrent episodes starting the day prior to current presentation prompting repeat ED evaluation. Work-up in the ED included T99, heart rate 101, BP initially 97/64 with most recent repeat 115/78, oxygenation 92% on room air while sleeping and post-narcotic therapy decreased, improved to 100% on 2 L nasal cannula, CBC with WC 5.2, hemoglobin 13.5, platelet 252 with lymphopenia, CMP with glucose 134 otherwise not marked appearing, lipase very mildly elevated 544, lactic acid 1.6, blood culture x2 pending per ED, rapid SARS COVID and influenza antigen negative, CT abdomen and pelvis with no acute intra-abdominal process noted.? In the ED patient ministered normal saline bolus 2 L, Zofran 4 mg IV x1 followed by promethazine 12.5 mg IM x1 morphine 4 mg IV x1. Hospital Course: 1. Acute gastroenteritis secondary to rotavirus?62-year-old female presents to the hospital with acute onset of nausea, vomiting, and diarrhea over the last week and a half, as an outpatient she states that her enteric pathogen panel was negative. She was set up to see GI as an outpatient per her primary care physician but while here had enteric pathogen panel sent which came back posit marija for rotavirus which is self-limiting. She is able to keep food down as well as liquids therefore I discussed with her the plan for discharge today she expressed understanding of the risk benefits of going home and would like to go home today as we have a cause. Blood work work was unremarkable other than mild electrolyte derangements which have been taking care of. A C. difficile test was also sent today given the diarrhea and it was negative for toxin or antigen but it was positive on the PCR therefore indicating she is likely colonized but not currently active. I do recommend that she keep her gastroenterology appointment on discharge and we discussed gentle advancement of her diet. She was started on Imodium while here in the hospital however given the findings on the enteric pathogen panel this will be discontinued. 2. Hypothyroidism, GERD are chronic medical conditions which complicate her care. Her home medications were continued where appropriate Physical Exam Narrative General: Alert, Oriented x3, Cooperative, No apparent distress HEENT: Atraumatic, PERRLA, EOMI, Normocephalic Oral: Moist Mucosa Neck: Supple, No JVD Lungs: Clear to auscultation, Normal air movement, No rhonchi, No wheeze, No rales Cardiovascular: Regular rate, Regular Rhythm, Normal S1, Normal S2, No murmurs Abdomen: Soft, Non Tender, Non-Distended, No Hepato-splenomegaly Extremities: No edema, Capillary Refill Less than 3 Seconds Skin: No rashes, No breakdown Musculoskeletal: No Tenderness to Palpation of Joints or Extremities Neurological: Cranial nerves II-XII grossly intact, Motor Exam 5/5 strength throughout, Sensory exam intact to light touch and pain Psych/Mental Status: Normal Affect, Appropriate Weight / BMI Weight Weight: 187 lb 6.4 oz Body Mass Index (BMI) 32.0 ABG / Lab / Microbiology Data Result Diagrams: 01/16/23 05:24 01/16/23 05:24 Laboratory: Laboratory Results - last 24 hr 01/14/23 20:45: Urine Color Yellow, Urine Clarity Sl. Cloudy, Urine pH 6.0, Ur Specific Elora 1.030, Urine Protein 15 H, Urine Glucose (UA) Normal, Urine Ketones 50 H, Urine Occult Blood 150 H, Urine Nitrite Negative, Urine Bilirubin Negative, Urine Urobilinogen Normal, Ur Leukocyte Esterase Negative, Urine RBC 25-50 SEEN, Urine WBC 0 SEEN, Ur Squamous Epith Cells 5-10 SEEN, Urine Bacteria 0 SEEN, Urine Mucus 0 SEEN 01/16/23 05:24: Sodium 141, Potassium 3.2 L, Chloride 109 H, Carbon Dioxide 26.0, Anion Gap 6, BUN 7, Creatinine 0.64, Estim Creat Clear Calc 80.72, Est GFR (MDRD) Af Amer 122, Est GFR (MDRD) Non-Af 101, BUN/Creatinine Ratio 11.0, Gluc ose 98, Calcium 8.3 L 01/16/23 05:24: WBC 5.1, RBC 3.39 L, Hgb 11.3 L, Hct 35.2 L, MCV 103.8 H, MCH 33.3 H, MCHC 32.1, RDW Std Deviation 51.2 H, RDW Coeff of Matt 13.2, Plt Count 189, MPV 10.8, Immature Gran % (Auto) 0.400, Neut % (Auto) 64.9, Lymph % (Auto) 20.1, [place] % (Auto) 14.4 H, Eos % (Auto) 0.0, Baso % (Auto) 0.2, Absolute Neuts (auto) 3.3, Absolute Lymphs (auto) 1.02, Nucleated RBC % 0 01/16/23 05:24: Phosphorus 2.3 L, Magnesium 1.8 Microbiology: Microbiology 01/15/23 23:10 Stool C. difficile GDH Antigen & Toxins - Final 01/15/23 23:10 Stool C. difficile DNA Amplification - Final 01/15/23 23:10 Stool Enteric Bacteriology - Final Rotavirus 01/14/23 20:33 Nasal Secretion SARS-CoV-2 & FLU Antigen (Rapid) - Final D/C Instructions Discharge Diet: No restrictions Call your doctor if you observe: Fever of 101 or Higher, Shortness of breath, Dizziness, Fainting spells, Swelling in the ankles, Chest pain and Increased palpitations (irregular heartbeat) Meaningful Use Info Meaningful Use Diagnoses (Choose all that apply): None applicable Discharge Plan Admission Admit Date/Time: 01/14/23 23:44 Attending Provider: Bridger Malik Primary Care Provider: Chelly Escoto NP Consulting Providers: Romelia Britton ; Maegan La Instructions Forms: Work / School Excuse Discharge Orders/Prescriptions Prescriptions: Continued acetaminophen 500 MG tablet 500 - 1,000 mg PO Q6H PRN PRN (Reason: Pain) levothyroxine [Levoxyl] 25 MCG tablet 25 mcg PO DAILY omeprazole 40 mg capsule,delayed release(DR/EC) 40 mg PO DAILY Label Comments: TAKE 1 CAPSULE BY MOUTH EVERY DAY Referrals / Follow Up: Chelly Escoto TRUCK BRACER, TRUCK BRACER-C [Primary Care Provider] - Within 1 Week Disposition Disposition (needs filled in before D/C Order can be placed): Home, Self Care Charges/Coding Visit Charges Inpatient E&M: 79576 Disch Hosp >30min
[2023-01-16 17:14] VITALS: BP 130/91; PULSE 72; RESP 18; TEMP 37.1; O2SAT 95
== END 2023-01-16 19:20 | disposition home or self-care (01) ==
LOC: ED 23:25 → MS3 23:58
PROVIDERS: Student in an Organized Health Care Education/Training Program; Admitting Provider Family Medicine; Emergency Provider Emergency Medicine; PCP Nurse Practitioner; Visit Provider Family Medicine
DX: A08.0 Rotaviral enteritis (principal); E27.9 Disorder of adrenal gland, unspecified; F17.210 Nicotine dependence, cigarettes, uncomplicated; R74.8 Abnormal levels of other serum enzymes; R09.02 Hypoxemia; E03.9 Hypothyroidism, unspecified; Z79.899 Other long term (current) drug therapy; Z79.890 Hormone replacement therapy; E66.9 Obesity, unspecified; Z68.32 Body mass index [BMI] 32.0-32.9, adult; M19.90 Unspecified osteoarthritis, unspecified site
CPT/HCPCS: 99285; 36415; 74177; 80048; 80053; 80076; 81001; 83036; 83605; 83690; 83735; 84100; 85025; 87040; 87329; 87428; 87493; 87506; 94668; 94762; 96361; 96365; 96366; 96367; 96372; 96375; 96376; 99221; 99252; 99406; J7030; J7050; Q9967; A4216; G0378; G0463; J2405

== ENCOUNTER → 2023-09-13 | Outpatient (CLI) | payer BC, SELFPAY ==
--- NOTE | 2023-09-13 13:25 | RAD_ITS ---
PROCEDURE: Fluoroscopic guided Hip Injection DATE: September 13, 2023. INDICATION: Female, 62 years old. Chronic left hip pain. PHYSICIAN: Hector Hannon M.D. MEDICATIONS: 80 mg of Kenalog and 3 cc of 0.05% Marcaine. 2% Lidocaine administered subcutaneously for local anesthesia. ACCESS SITE: Left hip. NEEDLE: 22-gauge spinal needle. FLUOROSCOPY TIME (if supplied): (0:56) minutes/seconds. 16.67 mGy FINDINGS: The risks, benefits, and alternatives to the procedure were explained to the patient. The specific risks of bleeding, infection, and neurovascular injury were detailed and accepted. Witnessed informed consent was obtained. A 22-gauge spinal needle was positioned under radiographic fluoroscopic localization. Approximately 2 cc of Isovue 300 instilled for localization purposes. Medication was then injected. The patient tolerated the procedure well without any immediate complications. RAD/Inj/Asp Soren Jt Should/Hip/Knee IMPRESSION: 1. Successful fluoroscopic guided hip injection. Electronically Signed: Hector Hannon MD at 14:16 EDT ,
[2023-09-13] MEDS: Lidocaine 2% (5ml sdv) 5 ML VIAL.MPF INFILT (13:45)
[2023-09-13] MEDS: Bupivacaine 0.5% PF 10 ML VIAL IJ (13:50)
[2023-09-13] MEDS: Triamcinolone Acetonide 40 MG/ML Vial 80 MG IM (13:50)
--- NOTE | 2023-09-13 14:36 | PRO.PCM_ITS ---
Procedure Report Date of Procedure: 09/13/23 Assessment & Plan Assessment/Plan (1) Chronic left hip pain: PLAN: PROCEDURE: Fluoroscopic Guided Hip Injection ORDERING PROVIDER: Dr. Ghassan Dela Cruz INDICATION: Female, 62 years old. Chronic left hip pain. PROVIDER: VIVEK Hurd PROCEDURE: CONSENT: The risks, benefits, and alternatives to the procedure were explained to the patient. The specific risks of bleeding, infection, and neurovascular injury were detailed and accepted. Witnessed informed consent was obtained. TECHNIQUE: The left hip was prepped and draped in sterile fashion. 2% Lidocaine was administered subcutaneously for local anesthesia. A 22-gauge spinal needle was positioned under radiographic fluoroscopic localization at the left hip access site. Approximately 2 cc of Isovue 300 instilled for localization pu rposes. Medication was then injected. MEDICATIONS: 80 mg of Kenalog and 3 cc of 0.5% Marcaine. The spinal needle was removed, and a dressing was applied. The patient tolerated the procedure well without any immediate complications. IMPRESSION: Successful fluoroscopic guided left hip injection. Procedures Radiology Radiology Xray Procedures: Inj Asp major Joint - Hip, Knee
== END | disposition home or self-care (01) ==
LOC: RAD 13:11
PROVIDERS: PCP Nurse Practitioner; Referring Provider Orthopaedic Surgery; Visit Provider Orthopaedic Surgery
DX: M25.552 Pain in left hip (principal); G89.29 Other chronic pain
CPT/HCPCS: 20610; 77002; Q9967

== ENCOUNTER → 2024-03-06 | Outpatient (CLI) | payer BC, SELFPAY ==
--- NOTE | 2024-03-06 12:59 | BD_ITS ---
STUDY: DUAL ENERGY X-RAY ABSORPTIOMETRY / DXA REASON FOR EXAM: Female, 63 years old. M810 TECHNIQUE: Bone Mineral Density (BMD) measurements of lumbar spine and bilateral hips were obtained. COMPARISON: None. FINDINGS: Lumbar Spine (L1-L4): g/cm2 (1.030) / T-score (-0.2) / Z-score (1.4) Findings are suggestive of normal bone density with a low fracture risk. Left Femur Total: g/cm2 (0.881) / T-score (-0.5) / Z-score (0.5) Left Femoral Neck: g/cm2 (0.752) / T-score (-0.9) / Z-score (0.5) Right Femur Total: g/cm2 (0.890) / T-score (-0.4) / Z-score (0.6) Right Femoral Neck: g/cm2 (0.764) / T-score (-0.8) / Z-score (0.6) BD/Dexa Bone Density Study IMPRESSION: The patient is considered normal as outlined below according to World Nick Organization (WHO) criteria with a low fracture risk. Reference Information: The T-score is the number of standard deviations above or below the standard which is normal for young adults at their peak bone mineral density. The World Health Organization (WHO) interprets the T-scores as follows: Above -1 Normal bone density Between -1 and -2.5 Osteopenia Equal to / or below -2.5 Osteoporosis As a practical clinical guideline, osteopenia may be graded as follows: Mild -1 through -1.5 Moderate -1.6 through -2.0 Severe -2.1 through -2.4 The Z-score is the number of standard deviations above or below age-matched controls. A Z-score of less than -1.5 would be considered abnormal. References: 1. NIH Osteoporosis and Related Bone Diseases www osteo.org 2. International Society for Clinical Densitometry www iscd.org 3. National Osteoporosis Foundation www nof.org Electronically Signed: Hector Hannon MD at 10:28 EDT ,
--- NOTE | 2024-03-06 12:59 | BI_ITS ---
MAMMOGRAPHY - BILATERAL SCREENING REASON FOR EXAM: Female, 63 years old. Routine annual screening examination. PERTINENT HISTORY: Aunt with breast cancer. TECHNIQUE: Digital bilateral breast oleg (3D mammographic acquisition) in the CC and MLO projections. 2-D mediolateral oblique (MLO) and craniocaudad (CC) views of both breasts were obtained. CAD: Full Field Digital Mammography with Computer Added Detection was performed. COMPARISON: Comparison is made with prior study dated March 02, 2021 and June 16, 2018. FINDINGS: Breast Composition: There are scattered areas of fibroglandular density. There are no dominant masses or suspicious calcifications. Stable benign-appearing bilateral axillary lymph nodes. No other significant abnormalities are identified. There has been no significant change since the prior study. BI/SCRN MAMM (CAD)W/OLEG BILAT IMPRESSION: Stable bilateral screening mammogram. Yearly follow-up mammogram recommended. (A) ASSESSMENT CATEGORY: BIRADS Category 2: Benign. A letter regarding these results will be sent to the patient by the facility within 30 days. Approximately 10% of breast cancers are not detected by mammography. A normal mammogram should not delay biopsy of a clinically suspicious abnormality. [id number] Electronically Signed: Hector Hannon MD at 14:46 EDT ,
== END | disposition home or self-care (01) ==
LOC: OPBD 12:58
PROVIDERS: PCP Nurse Practitioner; Referring Provider Nurse Practitioner; Visit Provider Nurse Practitioner
DX: Z12.31 Encounter for screening mammogram for malignant neoplasm of breast (principal); Z13.820 Encounter for screening for osteoporosis; Z78.0 Asymptomatic menopausal state
CPT/HCPCS: 77063; 77067; 77080

== ENCOUNTER 2024-05-03 20:14 | Outpatient (CLI) | payer BC, SELFPAY | END 2024-05-03 23:59 | disposition home or self-care (01) | PROVIDERS: PCP Nurse Practitioner; Referring Provider Nurse Practitioner; Visit Provider Nurse Practitioner | DX: G47.33 Obstructive sleep apnea (adult) (pediatric) (principal) | CPT/HCPCS: 95811 ==

== ENCOUNTER → 2024-05-10 | Outpatient (CLI) | payer BC, SELFPAY | END | disposition home or self-care (01) | LOC: SL 14:02 | PROVIDERS: PCP Nurse Practitioner; Visit Provider Nurse Practitioner | DX: Z00.00 Encounter for general adult medical examination without abnormal findings (principal) ==

== ENCOUNTER → 2024-09-27 | Outpatient (CLI) | payer BC, SELFPAY ==
--- NOTE | 2024-09-27 10:05 | RAD_ITS ---
PROCEDURE: Fluoroscopic guided Hip Injection DATE: September 27, 2024. INDICATION: Female, 64 years old. Chronic right hip pain. PHYSICIAN: Hector Hannon M.D. MEDICATIONS: 80 mg of Kenalog and 3 cc of 0.5% local anesthetic. 2% Lidocaine administered subcutaneously for local anesthesia. ACCESS SITE: Right hip. NEEDLE: 22-gauge spinal needle. FLUOROSCOPY TIME (if supplied): (0:38) minutes/seconds. 8.8 mGy.One image was obtained. FINDINGS: The risks, benefits, and alternatives to the procedure were explained to the patient. The specific risks of bleeding, infection, and neurovascular injury were detailed and accepted. Witnessed informed consent was obtained. Technique 22-gauge spinal needle was positioned under radiographic fluoroscopic localization. Approximately 2 cc of Isovue-300 instilled for localization purposes. Medication was then injected. The patient tolerated the procedure well without any immediate complications. RAD/Inj/Asp Soren Jt Should/Hip/Knee IMPRESSION: 1. Successful fluoroscopic guided hip injection. Electronically Signed: Hector Hannon MD at 12:20 EST ,
--- NOTE | 2024-09-27 10:23 | RAD_ITS ---
PROCEDURE: Fluoroscopic guided Hip Injection DATE: September 27, 2024. INDICATION: Female, 64 years old. Chronic left hip injection. PHYSICIAN: Hector Hannon M.D. MEDICATIONS: 80 mg of Kenalog and 3 cc of a local anesthetic. 2% lidocaine administered subcutaneously for local anesthesia. ACCESS SITE: Left hip. NEEDLE: 22-gauge spinal needle. FLUOROSCOPY TIME (if supplied): (1:24) minutes/seconds. 3 images were submitted. FINDINGS: The risks, benefits, and alternatives to the procedure were explained to the patient. The specific risks of bleeding, infection, and neurovascular injury were detailed and accepted. Witnessed informed consent was obtained. A 22-gauge spinal needle was positioned under radiographic fluoroscopic localization. Approximately 2 cc of Isovue-300 instilled for localization purposes. Medication was then injected. The patient tolerated the procedure well without any immediate complications. RAD/Inj/Asp Soren Jt Should/Hip/Knee IMPRESSION: 1. Successful fluoroscopic guided hip injection. Electronically Signed: Hector Hannon MD at 12:22 EST ,
[2024-09-27] MEDS: Lidocaine 2% (5ml sdv) 5 ML VIAL.MPF INFILT ×2 (10:45→11:04)
[2024-09-27] MEDS: Triamcinolone Acetonide 40 MG/ML Vial 80 MG INTRAARTIC ×2 (10:49→11:06)
[2024-09-27] MEDS: Bupivacaine 0.5% PF 10 ML VIAL 3 ML INTRAARTIC (10:49)
== END | disposition home or self-care (01) ==
LOC: RAD 10:03
PROVIDERS: PCP Nurse Practitioner; Referring Provider Orthopaedic Surgery; Visit Provider Orthopaedic Surgery
DX: M16.0 Bilateral primary osteoarthritis of hip (principal)
CPT/HCPCS: 20610; 77002; Q9967

== ENCOUNTER → 2025-04-21 | Outpatient (CLI) | payer BC, SELFPAY ==
--- NOTE | 2025-04-21 13:40 | BI_ITS ---
EXAM: SCRN MAMM (CAD)W/OLEG BILAT DATE: 04/21/2025 CLINICAL HISTORY: F, Age 64 y/o , SCREENING Patient has an aunt who was diagnosed with breast cancer BREAST CANCER RISK ASSESSMENT: Has not been calculated. TECHNIQUE: Bilateral screening digital breast tomosynthesis with 2D and 3D images. Computer aided detection. COMPARISON: Prior exam(s) dated 03/06/2024 and 03/02/2021. FINDINGS: TISSUE DENSITY: The breast tissue is composed of scattered area of fibroglandular density. Bilateral Breast Mammographic Findings: No suspicious masses, suspicious cluster of microcalcifications, architectural distortion or secondary signs of malignancy is identified in either breast. Stable benign-appearing axillary lymph nodes are seen bilaterally. A benign-appearing macrocalcification is seen in the right breast. BI/SCRN MAMM (CAD)W/OLEG BILAT IMPRESSION: OVERALL FINAL ASSESSMENT: BIRADS 2 BENIGN FINDING RECOMMENDATION: Routine annual follow-up in 1 Year A letter with findings and recommendations will be mailed to the patient. Reading Location: [id number]
== END | disposition home or self-care (01) ==
LOC: OPBI 13:38
PROVIDERS: PCP Internal Medicine; Referring Provider Internal Medicine; Visit Provider Internal Medicine
DX: Z12.31 Encounter for screening mammogram for malignant neoplasm of breast (principal); Z80.3 Family history of malignant neoplasm of breast
CPT/HCPCS: 77063; 77067